=== PATIENT | female | born 1960 | race Caucasian/White ===

== ENCOUNTER 2016-08-22 07:41 | Emergency (ER) | payer OTHER ==
[~2016-08-22] VITALS: Ht 167.6 cm; Wt 59.0 kg
--- NOTE | ~2016-08-22 | EKG ---
[place] [address] [facility] [place] [address] ELECTROCARDIOGRAM REPORT Name: MOUNA HUGHES Room #: [facility] [place] Jimenez#: [id number] Admission: 08/22/16 Attend Phys: Discharge: 08/22/16 Date of : 56 Report #: [id number] THIS REPORT FOR: //name// [facility] ED Test Date: 2016-08-22 Test Time: 07:44:15 Pat Name: MOUNA HUGHES Department: Room: Gender: F [employer] [place] Shearer: Viktoria CARRILLO : 1960 Requested By: Poornima Herndon Order Number: [id number] MD: Measurements Intervals [place] Rate: 64 P: 62 OR: 123 QRS: 51 QRSD: 91 T: 53 QT: 408 QTc: 421 Interpretive Statements Sinus rhythm RSR' in V1 or V2, probably normal variant Nonspecific T abnormalities, anterior leads No previous ECG available for comparison [email or web address] By: 3 Epiphany Epiphany, /EPI
[2016-08-22 07:44] VITALS: BP 114/73
[2016-08-22] MEDS ORDERED: PROZAC20 MG PO (07:53)
[2016-08-22] MEDS ORDERED: GABAPENTIN 100100 MG PO (07:53)
[2016-08-22] MEDS ORDERED: FLONASE 0.05%50 MCG NASAL (07:54)
[2016-08-22] MEDS ORDERED: PREMARIN VAGI42.5 G1 TOP (07:54)
== END 2016-08-22 08:25 | disposition home or self-care (01) ==
LOC: ER 07:41
DX: R00.2 Palpitations (principal); Z88.1 Allergy status to other antibiotic agents; Z88.2 Allergy status to sulfonamides